=== PATIENT | female | born 1970 | race Caucasian/White ===

== ENCOUNTER 2022-09-19 09:06 | Emergency (ER) | payer OTHER ==
[2022-09-19] MEDS ORDERED: NA CHLORIDE 0.9% 100 ML IV ONE (09:49)
[2022-09-19] MEDS ORDERED: PROMETHAZINE INJ 25 MG/ML AMP ONE (09:49)
[2022-09-19 09:59] LABS: Absolute Lymphocytes (CBC) 1.5 K/uL (0.7-4.9); Hematocrit 47.6 % (36.0-45.0); Lymphocytes % 15.6 % (15.3-44.8); MPV 8.8 fL (7.6-11.3)
--- NOTE | 2022-09-19 09:59 | RAD REPORT ---
EXAM DESCRIPTION: RAD - Chest Single View - 09/19/2022 9:53 am CLINICAL HISTORY: dizziness COMPARISON: No comparisons FINDINGS: Lines: None. Lungs: No evidence of edema or pneumonia. Pleural: No significant pleural effusions or pneumothorax. Cardiac: The heart size is within normal limits. Mediastinum: Within normal limits. Bones: No acute fractures. Other: None IMPRESSION: No acute cardiopulmonary disease.
[2022-09-19 10:19] LABS: Potassium 3.6 mmol/L (3.5-5.1); Troponin High Sensitivity 4.8 pg/mL (<58.9)
--- NOTE | 2022-09-19 10:37 | RAD REPORT ---
EXAM DESCRIPTION: CT - Head Brain Wo Cont - 09/19/2022 10:07 am CLINICAL HISTORY: dizzy COMPARISON: None TECHNIQUE: All CT scans are performed using dose optimization technique as appropriate and may inclu de automated exposure control or mA/KV adjustment according to patient size. FINDINGS: No intracranial hemorrhage, hydrocephalus or extra-axial fluid collection.No areas of brai n edema or evidence of midline shift. The paranasal sinuses and mastoids are clear. The calvarium is intact. IMPRESSION: No acute intracranial abnormality.
[2022-09-19] MEDS ORDERED: DIAZEPAM 5 MG TABLET ONE (10:49)
--- NOTE | 2022-09-19 12:37 | ER ---
Nurse's Notes [facility] Name: Karo Senior Age: 52 yrs Sex: Female : 1970 Arrival Date: 09/19/2022 Time: 09:07 Bed 2 Private MD: Adelfo Masterson R Diagnosis: Other peripheral vertigo, unspecified ear Presentation: 09/19 09:18 Chief complaint: Patient states: Woke yesterday with dizziness, took allergy medication jl7 and it resolved. Woke this morning with dizziness, worse with movement, N/V. Coronavirus screen: Vaccine status: Patient reports receiving the 2nd dose of the covid vaccine. At this time, the client does not indicate any symptoms associated with coronavirus-19. Ebola Screen: No symptoms or risks identified at this time. Initial Sepsis Screen: Does the patient meet any 2 criteria? No. Patient's initial sepsis screen is negative. Does the patient have a suspected source of infection? No. Patient's initial sepsis screen is negative. Risk Assessment: Do you want to hurt yourself or someone else? Patient reports no desire to harm self or others. Onset of symptoms was September 18, 2022. Care prior to arrival: None. 09:18 Method Of Arrival: Ambulatory jl7 09:18 Acuity: MARY 3 jl7 Triage Assessment: 09:21 General: Appears in no apparent distress. uncomfortable, Behavior is calm, cooperative, jl7 appropriate for age. Pain: Denies pain. Neuro: Level of Consciousness is awake, alert, obeys commands, Oriented to person, place, time, situation, Reports dizziness. Cardiovascular: Denies chest pain, shortness of breath. Respiratory: Airway is patent Respiratory effort is even, unlabored, Respiratory pattern is regular, symmetrical. GI: Reports nausea, vomiting. Derm: Skin is dry, Skin is pale, Skin temperature is cool. 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 - Social history:: Smoking status: Patient denies any tobacco usage or history of. Screenin:30 Abuse screen: Denies threats or abuse. Denies injuries from another. Nutritional bp screening: No deficits noted. Tuberculosis screening: No symptoms or risk factors identified. Fall Risk None identified. Assessment: 09:30 General: SEE TRIAGE NOTE. bp 10:30 Reassessment: No changes from previously documented assessment. Patient and/or family bp updated on plan of care and expected duration. Pain level reassessed. GI: Abdomen is non-distended, Bowel sounds present X 4 quads. 11:28 Reassessment: Patient appears in no apparent distress at this time. Patient and/or vg1 family updated on plan of care and expected duration. Pain level reassessed. Patient is alert, oriented x 3, equal unlabored respirations, skin warm/dry/pink. Patient denies pain at this time. Patient states feeling better. 12:27 Reassessment: No changes from previously documented assessment. Patient and/or family bp updated on plan of care and expected duration. Pain level reassessed. 12:48 Reassessment: PT DC HOME AMBULATORY WITH FAMILY. bp Vital Signs: 09:18 BP 158 / 106; Pulse 97; Resp 17; Temp 97.9; Pulse Ox 100% on R/A; Weight 86.18 kg; jl7 Height 5 ft. 3 in. (160.02 cm); Pain 0/10; 10:00 BP 149 / 96; Pulse 84; Resp 12; Pulse Ox 99% on R/A; vg1 11:00 BP 144 / 85; Pulse 85; Resp 15; Pulse Ox 97% on R/A; vg1 12:27 BP 132 / 82; Pulse 85; Resp 18; Pulse Ox 93% ; bp 09:18 Body Mass Index 33.66 (86.18 kg, 160.02 cm) jl7 ED Course: 09:07 Patient arrived in ED. as 09:07 Adelfo Masterson MD is Private Physician. as 09:12 Feliciano Marley DO is Attending Physician. ms3 09:12 Gregg Maguire, SARAH is Primary Nurse. bp 09:21 Triage completed. jl7 09:21 Arm band placed on right wrist. jl7 09:30 Patient has correct armband on for positive identification. Bed in low position. Call bp light in reach. Side rails up X2. Adult w/ patient. 09:45 Inserted saline lock: 20 gauge in left forearm, using aseptic technique. Blood bp collected. 09:54 XRAY Chest (1 view) In Process Unspecified. EDMS 10:09 CT Head Brain wo Cont In Process Unspecified. EDMS 12:48 No provider procedures requiring assistance completed. IV discontinued, intact, bp bleeding controlled, No redness/swelling at site. Pressure dressing applied. Administered Medications: 09:45 Drug: Phenergan (promethazine) 25 mg Route: IVP; Site: left forearm; bp 10:18 Follow up: Response: No adverse reaction vg1 10:49 Drug: Diazepam 5 mg Route: PO; vg1 11:27 Follow up: Response: No adverse reaction; Marked relief of symptoms vg1 Medication: 12:48 VIS not applicable for this client. bp Outcome: 12:36 Discharge ordered by MD. ms3 12:48 Discharged to home via wheelchair, with family. bp 12:48 Condition: stable 12:48 Discharge instructions given to patient, Instructed on discharge instructions, follow up and referral plans. medication usage, Demonstrated understanding of instructions, follow-up care, medications, Prescriptions given X 1. 12:53 Patient left the ED. bp Signatures: Dispatcher [employer] Kerrie Claros Jahala RN RN jl7 Gregg Maguire, RN RN Ainsley Rivera, RN RN vg1 Feliciano Marley DO DO ms3 Corrections: (The following items were deleted from the chart) 09:22 09:21 Allergies: No Known Allergies; jennifer jlRoxanna
--- NOTE | 2022-09-19 12:37 | EDPHYS ---
Physician Documentation [facility] Name: Karo Senior Age: 52 yrs Sex: Female : 1970 Arrival Date: 09/19/2022 Time: 09:07 Bed 2 Private MD: Adelfo Masterson R ED Physician Feliciano Marley HPI: 09/19 09:54 This 52 yrs old Female presents to ER via Ambulatory with complaints of Dizziness, ms3 Nausea, High Blood Pressure. 09:54 The patient presents with sense of spinning, vertigo. Onset: The symptoms/episode ms3 began/occurred yesterday. Context: occurred On waking up yesterday morning. Modifying factors: The symptoms are alleviated by Benadryl, the symptoms are aggravated by movement of head. Associated signs and symptoms: Pertinent positives: nausea, Pertinent negatives: vomiting. Severity of symptoms: At their worst the symptoms were moderate in the emergency department the symptoms are unchanged Pain is currently a 0 / 10. 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 - Social history:: Smoking status: Patient denies any tobacco usage or history of. ROS: 09:54 Constitutional: Negative for fever, and chills. Neck: Negative for injury, pain, and ms3 swelling, Cardiovascular: Negative for chest pain, and palpitations. Respiratory: Negative for shortness of breath, cough, wheezing, and pleuritic chest pain, Abdomen/GI: Negative for abdominal pain, nausea, vomiting, diarrhea, and constipation, MS/Extremity: Negative for injury and deformity, Skin: Negative for injury, rash, and discoloration. 09:54 Neuro: Positive for dizziness. 09:54 All other systems are negative. Exam: 09:16 ECG was reviewed by the Attending Physician. ms3 09:54 Constitutional: This is a well developed, well nourished patient who is awake, alert, ms3 and in no acute distress. Head/Face: Normocephalic, atraumatic. ENT: Nares patent. No nasal discharge, no septal abnormalities noted. Tympanic membranes are normal and external auditory canals are clear. Oropharynx with no redness, swelling, or masses, exudates, or evidence of obstruction, uvula midline. Mucous membranes moist. Neck: Trachea midline, no cervical lymphadenopathy. Supple, full range of motion without nuchal rigidity, or vertebral point tenderness. No Meningismus. Chest/axilla: Normal chest wall appearance and motion. Nontender with no deformity. Cardiovascular: Regular rate and rhythm with a normal S1 and S2. No gallops, murmurs, or rubs. Normal PMI, no JVD. No pulse deficits. Respiratory: Lungs have equal breath sounds bilaterally, clear to auscultation and percussion. No rales, rhonchi or wheezes noted. No increased work of breathing, no retractions or nasal flaring. Abdomen/GI: Soft, non-tender, with normal bowel sounds. No distension or tympany. No guarding or rebound. No evidence of tenderness throughout. Skin: Warm, dry with normal turgor. Normal color with no rashes, no lesions, and no evidence of cellulitis. MS/ Extremity: Pulses equal, no cyanosis. Neurovascular intact. Full, normal range of motion. 09:54 Neuro: Orientation: is normal, Mentation: is normal, Memory: is normal, Cerebellar function: is grossly normal, normal finger to nose testing, Motor: is normal, no acute changes, moves all fours, strength is 5/5 in all extremities, Sensation: is normal, no obvious gross deficits, no acute changes, numbness, is not appreciated, tingling, is not appreciated, Gait: is steady, at a normal pace. Vital Signs: 09:18 BP 158 / 106; Pulse 97; Resp 17; Temp 97.9; Pulse Ox 100% on R/A; Weight 86.18 kg; jl7 Height 5 ft. 3 in. (160.02 cm); Pain 0/10; 10:00 BP 149 / 96; Pulse 84; Resp 12; Pulse Ox 99% on R/A; vg1 11:00 BP 144 / 85; Pulse 85; Resp 15; Pulse Ox 97% on R/A; vg1 12:27 BP 132 / 82; Pulse 85; Resp 18; Pulse Ox 93% ; bp 09:18 Body Mass Index 33.66 (86.18 kg, 160.02 cm) jl7 MDM: 09:28 Patient medically screened. ms3 09:54 Differential diagnosis: idiopathic dizziness, near-syncope, vertigo. ms3 12:36 Data reviewed: vital signs, nurses notes, lab test result(s), EKG, radiologic studies, ms3 and as a result, I will discharge patient. Counseling: I had a detailed discussion with the patient and/or guardian regarding: the historical points, exam findings, and any diagnostic results supporting the discharge/admit diagnosis, lab results, radiology results, the need for outpatient follow up, to return to the emergency department if symptoms worsen or persist or if there are any questions or concerns that arise at home. ED course: Discussed labs and imaging with patient and her . On reevaluation patient symptoms have improved, patient is in no apparent distress, nontoxic-appearing, ambulatory in emergency department with steady gait. Patient to follow-up with her neurologist in 2 to 3 days. Patient understands and agrees with plan. All questions were answered. Return precautions discussed include worsening symptoms, or any other concerns. 09/19 09:34 Order name: Basic Metabolic Panel; Complete Time: 10:38 ms3 09/19 09:34 Order name: CBC with Diff; Complete Time: 10:38 ms3 09/19 09:34 Order name: Troponin HS; Complete Time: 10:38 ms3 12 09:34 Order name: XRAY Chest (1 view); Complete Time: 10:38 ms3 09/19 09:34 Order name: CT Head Brain wo Cont; Complete Time: 10:38 ms3 09/19 09:34 Order name: EKG; Complete Time: 09:34 ms3 12 09:34 Order name: Cardiac monitoring; Complete Time: 09:45 ms3 09/19 09:34 Order name: EKG - Nurse/Tech; Complete Time: 09:45 ms3 09/19 09:34 Order name: IV Saline Lock; Complete Time: 09:45 ms3 12 09:34 Order name: Labs collected and sent; Complete Time: 09:45 ms3 09/19 09:34 Order name: O2 Per Protocol; Complete Time: 09:45 ms3 09/19 09:34 Order name: O2 Sat Monitoring; Complete Time: 45 ms3 EC:16 Rate is 97 beats/min. Rhythm is regular. QRS [place] is Normal. [place] interval is normal. QRS ms3 interval is normal. QT interval is normal. Clinical impression: Normal ECG. Interpreted by me. Reviewed by me. Administered Medications: 45 Drug: Phenergan (promethazine) 25 mg Route: IVP; Site: left forearm; bp 10:18 Follow up: Response: No adverse reaction vg1 10:49 Drug: Diazepam 5 mg Route: PO; vg1 11:27 Follow up: Response: No adverse reaction; Marked relief of symptoms vg1 Disposition Summary: 09/19/22 12:36 Discharge Ordered Location: Home ms3 Condition: Stable ms3 Diagnosis - Other peripheral vertigo, unspecified ear ms3 Discharge Instructions: - Discharge Summary Sheet ms3 - Benign Positional Vertigo ms3 - Dizziness ms3 Forms: - Medication Reconciliation Form ms3 - Thank You Letter ms3 - Antibiotic Education ms3 - Prescription Opioid Use ms3 Prescriptions: - Meclizine 25 mg Oral Tablet - take 1 tablet by ORAL route every 8 hours As needed; 30 tablet; Refills: 0, ms3 Product Selection Permitted Signatures: Dispatcher [employer] Macey Qiu RN RN jl7 Gregg Maguire RN RN Ainsley Rivera RN RN vg1 Felicaino Marley DO DO ms3 Corrections: (The following items were deleted from the chart) : 09:21 Allergies: No Known Allergies; jennifer jlRoxanna
[2022-09-19 13:19] VITALS: TEMP 97.9
[2022-09-19 13:22] VITALS: BP 132/82; O2SAT 93
--- NOTE | 2022-09-20 14:59 | EKG ---
Test Date: 2022-09-19 Test Time: 09:16:40 Linotype Operator: ALP MEASUREMENT RESULTS: Intervals: Rate: 97 DE: 152 QRSD: 88 QT: 376 QTc: 477 Vera: P: 68 DE: 152 QRS: 71 T: 67 INTERPRETIVE STATEMENTS: Normal sinus rhythm Normal ECG Compared to ECG 11/28/2006 13:52:42 Sinus tachycardia no longer present Electronically Signed On 09-20-22 14:55:42 OFFICE MACHINE SERVICER by Toñito Sapp
== END 2022-09-19 12:53 | disposition home or self-care (01) ==
LOC: ER 09:06
DX: H81.399 Other peripheral vertigo, unspecified ear (principal); I10 Essential (primary) hypertension; Z88.0 Allergy status to penicillin
CPT/HCPCS: 93005; 85025; 80048; 36415; 84484; 70450; 71045; 96374; 99284; J2550